=== PATIENT | female | born 1985 | race African-American/Black ===

== ENCOUNTER 2017-02-24 16:01 | Observation (INO) ==
[2017-02-24] MEDS ORDERED: SODIUM CHLORIDE 0.9% 500 ML IV STA (16:53)
[2017-02-24] MEDS ORDERED: ONDANSETRON 4 MG/2 ML VIAL IV STA (16:53)
[2017-02-24] MEDS ORDERED: MECLIZINE 25 MG TABLET PO STA (16:53)
--- NOTE | 2017-02-24 17:04 | Emergency Department Note ---
Lakshmi Becerra Brittany, am scribing for, and in the presence of, Dany Vargas MD 16:44. Sam Becerra Charles R, MD, personally performed the services described in this documentation, ascribed by Jennifer Martins in my presence, and it is both accurate and complete 703 . Arrival - Arrival Chief Complaint: Blood Pressure Stated Complaint: LOW BLOOD PRESSURE ED Nursing Triage Note: Low blood pressure at home - Pt is seeing Dr Dany Carmona - [facility] for CHF - pt denies CP or SOB Mode of Arrival: Ambulatory Limitations: No Limitations Source: Patient, Family - History of Present Illness HPI Narrative: This is a 31 y/o black female,who presents to the ED for further evaluation of Hypotension which started earlier this morning. Her mom states she has been taking her BP every day for the past week and has noticed it was low. Pt has a known Hx of CHF and sees Dr. Carmona in [place], [place]. She denies any CP or SOB. Pt really has no complaints other than dizziness when standing. She notes once she gets her balance the dizziness resolves on its own. Pt states she normally takes Lasix BID. Pt has no other complaints/pain in the ED at this time. Pt has a PMhx of CHF and NIDDM. Pt denies a surgical Hx. Pt denies a family medical Hx. Pt denies a social Hx. Onset (ago): hour(s) (Started earlier this morning) Consistency: constant Severity: mild Date of Last Menstrual Period: depo Allergies/Adverse Reactions: Allergies Allergy/AdvReac Type Severity Reaction Status Date / Time No Known Allergies Allergy Verified 02/24/17 16:40 Home Medications: Home Medications Medication Instructions Recorded Confirmed Type Allopurinol 300 mg PO DAILY PRN 02/24/17 02/24/17 History Carvedilol [Coreg] 25 mg PO BID 02/24/17 02/24/17 History Chlorzoxazone 500 mg PO Q6H PRN 02/24/17 02/24/17 History Cholecalciferol [Vitamin D3] 1,000 unit PO QAM 02/24/17 02/24/17 History Colchicine 0.6 mg PO BID PRN 02/24/17 02/24/17 History Digoxin Tab [Lanoxin Tab] 0.25 mg PO QAM 02/24/17 02/24/17 History Ferrous Sulfate 325 mg PO QAM 02/24/17 02/24/17 History Furosemide Tab [Lasix Tab] 40 mg PO BID DIURETIC 02/24/17 02/24/17 History Metformin HCl 500 mg PO BID 02/24/17 02/24/17 History Ramipril [Altace] 10 mg PO BID 02/24/17 02/24/17 History Spironolactone 25 mg PO QAM 02/24/17 02/24/17 History medroxyPROGESTERone INJ [Depo 150 mg IM Q90D 02/24/17 02/24/17 History Provera] Review of System - Review of System 12 point system: reviewed and no additional remarkable complaints except as stated - Review of System Constitutional: Present: weakness (Generalized weakness) Cardiovascular: Absent: chest pain, dyspnea on exertion Neurological: Present: vertigo (Orthostatic Hypotension) Medical,Surgical,& Family Hx - Medical History Cardio: History of: CHF Endocrine: History of: Diabetes Mellitus (NIDDM) - Social History Smoking Status: Never smoker Frequency of Alcohol Use: None Type of Drug Use: None Exam Vital Signs: Vital Signs Temperature 98.1 F 02/24/17 16:39 Pulse Rate 66 02/24/17 18:30 Respiratory Rate 21 02/24/17 18:30 Blood Pressure 98/32 02/24/17 18:30 O2 Sat by Pulse Oximetry 100 02/24/17 18:30 - General General appearance: alert, in no apparent distress - Head Head exam: Present: normal inspection - Eye Eye exam: Present: nystagmus (Slight nystagmus) - Neck Neck exam: Present: trachea midline. Absent: tenderness - Chest Chest inspection: Present: symmetric chest wall rise. Absent: tenderness - Respiratory Respiratory exam: Present: normal lung sounds bilaterally. Absent: respiratory distress - Cardiovascular Cardiovascular exam: Present: regular rate, normal rhythm, normal heart sounds. Absent: murmur, rubs, gallop, clicks, JVD - Abdominal Exam Abdominal exam: Present: soft, normal bowel sounds. Absent: tenderness - Rectal Exam Rectal exam: Present: deferred - Extremities Exam Extremities exam: Present: full ROM, normal capillary refill. Absent: tenderness - Back Exam Back exam: Present: full ROM. Absent: tenderness, muscle spasm, rashes - Neurological Exam Neurological exam: Present: alert, oriented X3, CN II-XII intact. Absent: motor sensory deficit - Psychiatric Psychiatric exam: Present: normal affect, normal mood. Absent: depressed, agitated, anxious, flat affect, manic - Skin Skin exam: Present: warm, dry, intact, normal color. Absent: rash, cyanosis, diaphoresis Course - Reevaluation(s) Reevaluation #1: Patient somewhat better but still having symptoms of dizziness and feeling she is going to fall out. Blood pressure still systolically less than 197. Time: 19:15 - Consultations Consultation #1: Hospitalist will admit patient Time: 19:16 Results - Labs CBC & BMP: 02/24/17 16:59 02/24/17 16:59 Lab Results: I have reviewed the patients labs Labs: Laboratory Tests 02/24/17 02/24/17 02/24/17 16:59 16:59 16:59 WBC 10.9 RBC 3.69 L Hgb 10.9 L Hct 32.4 L MCV 87.8 MCH 30 MCHC 33.6 RDW 14.2 Plt Count 357 MPV 10.3 Neut % (Auto) 63.4 Lymph % (Auto) 25.0 [place] % (Auto) 6.9 Eos % (Auto) 3.5 Baso % (Auto) 0.4 Neut # (Auto) 6.9 Lymph # (Auto) 2.7 [place] # (Auto) 0.8 Eos # (Auto) 0.4 Baso # (Auto) 0.0 Immature Gran % 0.8 Nucleated RBC % 0.0 Immature Gran # 0.09 Nucleated RBCs # 0.00 Immature Plt Fraction 0.0 Sodium 135 L Potassium 5.1 Chloride 104 Carbon Dioxide 23 Anion Gap 13.1 BUN 30 H Creatinine 1.70 H GFR Calculation 52 BUN/Creatinine Ratio 17.00 Glucose 73 L Calculated Osmolality 274.1 Calcium 9.3 Magnesium 1.3 L Total Bilirubin 0.40 AST 12 ALT 15 Alkaline Phosphatase 73 Total Creatine Kinase 172 CK-MB (CK-2) < 1.0 Troponin I < 0.015 B-Natriuretic Peptide < 2 L Total Protein 7.8 Albumin 3.7 Albumin/Globulin Ratio 0.9 L Urine Color Urine Appearance Urine pH Ur Specific [place] Urine Protein Urine Glucose (UA) Urine Ketones Urine Blood Urine Nitrate Urine Bilirubin Urine Urobilinogen Urine Leukocytes Urine RBC Urine WBC Ur Squamous Epith Cells Urine Bacteria Hyaline Casts Ur Culture Indicated? Urine Test Urine Opiates Screen Ur Barbiturates Screen Ur Phencyclidine Scrn U Amphetamine/Methamph U Benzodiazepines Scrn U Cocaine Metab Screen U Cannabinoids Screen 02/24/17 02/24/17 02/24/17 16:59 16:59 16:59 WBC RBC Hgb Hct MCV MCH MCHC RDW Plt Count MPV Neut % (Auto) Lymph % (Auto) [place] % (Auto) Eos % (Auto) Baso % (Auto) Neut # (Auto) Lymph # (Auto) [place] # (Auto) Eos # (Auto) Baso # (Auto) Immature Gran % Nucleated RBC % Immature Gran # Nucleated RBCs # Immature Plt Fraction Sodium Potassium Chloride Carbon Dioxide Anion Gap BUN Creatinine GFR Calculation BUN/Creatinine Ratio Glucose Calculated Osmolality Calcium Magnesium Total Bilirubin AST ALT Alkaline Phosphatase Total Creatine Kinase CK-MB (CK-2) Troponin I B-Natriuretic Peptide Total Protein Albumin Albumin/Globulin Ratio Urine Color Straw Urine Appearance Slightly hazy Urine pH 5.0 Ur Specific [place] 1.005 Urine Protein Negative Urine Glucose (UA) Negative Urine Ketones Negative Urine Blood Negative Urine Nitrate Negative Urine Bilirubin Negative Urine Urobilinogen < 2.0 H Urine Leukocytes Negative Urine RBC <1 Urine WBC 1 Ur Squamous Epith Cells Occasional Urine Bacteria Occasional Hyaline Casts 5 Ur Culture Indicated? Not indicated Urine Test Negative Urine Opiates Screen Negative Ur Barbiturates Screen Negative Ur Phencyclidine Scrn Negative U Amphetamine/Methamph Negative U Benzodiazepines Scrn Negative U Cocaine Metab Screen Negative U Cannabinoids Screen Negative - Diagnostic Findings Procedure: CT: report reviewed by me (Head CT: No acute intracranial abnormality is identified.) Disposition Clinical Impression: Orthostatic hypotension, Generalized weakness, Idiopathic dilated cardiac myopathy, Dizziness Case discussed with: patient, patient's family Disposition: Still a Patient Condition: Stable Time of Disposition: 19:17
--- NOTE | 2017-02-24 17:17 | CT Report ---
Referring physician: Dany Vargas Exam: CT brain without contrast Date: 02/24/2017 Comparison: None Reason: Dizziness Technique: Axial images of the head were obtained without the use of contrast. Total DLP was 1073.10 mGy*cm. Findings: No hydrocephalus or midline shift is present. There is no evidence of an acute infarction, recent intracranial hemorrhage or abnormal mass effect. The osseous structures appear intact. The mastoid air cells and visualized paranasal sinuses are clear. Impression: No acute intracranial abnormality is identified. The CT exam was performed using one or more of the following dose reduction techniques: Automated exposure control and adjustment of the mA and/or kV according to patient size. PROCEDURE INTERPRETED AT [facility] DEPARTMENT OF RADIOLOGY Final Report Signed by: Dr. Alexandria Egan
[2017-02-24] MEDS ORDERED: MECLIZINE 25 MG TABLET ONE (17:41)
[2017-02-24 17:47] LABS: Basophils % 0.4 % (0.0-0.8); Eosinophils # 0.4 10*3/uL (0.0-0.87); Eosinophils % 3.5 % (0.00-10.9); Hematocrit 32.4 VOL% (35.7-47.0); Hemoglobin 10.9 GM/DL (12.0-16.0); Immature Granulocytes % 0.8 %; Immature Granulocytes Absolute 0.09 #; Lymphocytes # 2.7 10*3/uL (1.4-4.0); Mean Corpuscular HGB Conc 33.6 GM/DL (32-36); Mean Corpuscular Hemoglobin 30 PG (27-34); Mean Corpuscular Volume 87.8 FL (87-102); Mean Platelet Volume 10.3 FL (9.6-12.0); Monocytes # 0.8 10*3/uL (0.11-0.8); Monocytes % 6.9 % (1.7-12.7); Neutrophils # 6.9 10*3/uL (1.4-7.4); Neutrophils % 63.4 % (38.7-73.9); Platelet Count 357 T/CUMM (130-400); Red Blood Count 3.69 MC/CUMM (3.8-5.5); Red Cell Distribution Width 14.2 % (9.3-17.3); White Blood Count 10.9 T/CUMM (4-12)
[2017-02-24 17:54] LABS: Apearance,Urine Slightly Hazy (Clear); Bacteria,Urine Occasional /HPF (Few); Bilirubin,Urine Negative (Negative); Blood, Urine Negative (Negative); Glucose,Urine (UA) Negative (Negative); Hyaline Casts,Urine 5 /LPF (0-3); Ketones,Urine Negative (Negative); Nitrite,Urine Negative (Negative); Protein,Urine Negative; RBC,Urine <1 /HPF (0-4); Squamous Epithelial Cell,Urine Occasional /HPF (0-10); Urine Color Straw (Yellow); Urine Specific Gravity 1.005 (1.001-1.035); Urine Urobilinogen < 2.0 EU/DL (0.2-1.0); WBC,Urine 1 /HPF (0-6)
[2017-02-24 18:08] LABS: Barbiturates Screen,Urine Negative (Negative); Benzodiazepines Screen,Urine Negative (Negative); Cannabinoid Screen,Urine Negative (Negative); Opiate Screen,Urine Negative (Negative); Phencyclidine Screen,Urine Negative (Negative)
--- NOTE | 2017-02-24 18:12 | XRay Report ---
2 view chest 02/24/2017 602 PM Indication: Shortness of breath Comparison: Not available Findings: Cardiomediastinal contours are normal. Lungs are clear bilaterally. . No acute osseous abnormalities. Visualized upper abdomen demonstrates no acute pathology. Impression: Normal chest PROCEDURE INTERPRETED AT [facility] DEPARTMENT OF RADIOLOGY Final Report Signed by: Marianna Reed MD
[2017-02-24 18:29] LABS: Alanine Aminotransferase 15 U/L (13-56); Albumin 3.7 G/DL (3.4-5.0); Alkaline Phosphatase 73 U/L (45-117); Aspartate Amino Transferase 12 U/L (0-37); Blood Urea Nitrogen 30 MG/DL (7-18); Calcium 9.3 MG/DL (8.5-10.1); Glucose 73 MG/DL (74-106); Magnesium 1.3 MG/DL (1.8-2.4); Osmolality,Calculated 274.1 MOS/KG (273-304); Potassium 5.1 MMOL/L (3.5-5.1); Sodium 135 MMOL/L (136-145); Total Protein 7.8 G/DL (6.4-8.3); Troponin I Only < 0.015 NG/ML (0.00-0.045)
[2017-02-24] MEDS ORDERED: MAGNESIUM SULF RIDER 2 GM in PREMIX 1 EACH IV STA (18:56)
[2017-02-24] MEDS ORDERED: MAGNESIUM SULF RIDER 50 ML IV ONE (19:01)
--- NOTE | 2017-02-24 19:39 | Hospitalist History & Physical ---
Assessment and Plan - Time spent with patient Time spent with patient: Greater than 30 minutes (1) Dizziness Status: Acute Assessment and plan: Patient has had some lightheadedness which is associated with her low blood pressure. I have reviewed some old records that she has from 2014 from [facility] at which time her systolic blood pressures were in the 90s. Because of her symptoms of dizziness at this time, we will place her in observation overnight and cautiously hydrate. Will hold her evening dose of Lasix and reinitiate her routine home medications in the a.m. Current Visit: Yes (2) Cardiomyopathy Status: Chronic Assessment and plan: Patient has a presumed nonischemic cardiomyopathy by history. 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 Current Visit: Yes (3) Hypertension Status: Chronic Assessment and plan: She is relatively hypotensive this time. Continue current medical management with plans as noted above. Current Visit: Yes Qualifiers: Hypertension type: essential hypertension Qualified Code(s): I10 - Essential (primary) hypertension (4) Obesity (BMI 30-39.9) Status: Chronic Assessment and plan: Have encouraged weight reduction and she is amenable and is actively trying. Current Visit: Yes (5) Diabetes mellitus Status: Chronic Assessment and plan: We will continue her routine metformin twice daily along with Accu-Cheks and sliding scale while here. Hemoglobin A1c has been ordered. Current Visit: Yes Qualifiers: Diabetes mellitus type: type 2 (6) Hypomagnesemia Status: Acute Assessment and plan: She is receiving magnesium replacement intravenously in the emergency department. We will follow-up level in the a.m. Current Visit: Yes History of Present Illness Chief complaint: Dizzy and low blood pressure History of present illness: Ms. Dai is a 31 year old -[place] female who presents today with a one-week history of dizziness which is typically associated with positional change. She apparently has a nonischemic cardiomyopathy and is been evaluated at [facility] for possible ICD placement. She was told that she needs to lose weight before they would proceed. She denies any chest pain, shortness of breath, abdominal pain, nausea, vomiting, diarrhea, constipation, melena, hematochezia, hematemesis, dysuria, hematuria, urinary frequency urgency incontinence, syncope , seizure. She has had no recent changes in medications except for the addition of metformin for her diabetes. Other than called in some abdominal discomfort she is happy with metformin as she has lost some weight since its initiation. She was evaluated in the emergency department and noted to have systolic blood pressure in the 80 and 90 range because of her symptoms associated with such was felt that she would benefit from continued observation and care. Her primary care provider is Dr. Laina Sullivan. Resuscitation status has been discussed and she is full code. Home Medications Medication Instructions Recorded Confirmed Type Allopurinol 300 mg PO DAILY PRN 02/24/17 02/24/17 History Carvedilol [Coreg] 25 mg PO BID 02/24/17 02/24/17 History Chlorzoxazone 500 mg PO Q6H PRN 02/24/17 02/24/17 History Cholecalciferol [Vitamin D3] 1,000 unit PO QAM 02/24/17 02/24/17 History Colchicine 0.6 mg PO BID PRN 02/24/17 02/24/17 History Digoxin Tab [Lanoxin Tab] 0.25 mg PO QAM 02/24/17 02/24/17 History Ferrous Sulfate 325 mg PO QAM 02/24/17 02/24/17 History Furosemide Tab [Lasix Tab] 40 mg PO BID DIURETIC 02/24/17 02/24/17 History Metformin HCl 500 mg PO BID 02/24/17 02/24/17 History Ramipril [Altace] 10 mg PO BID 02/24/17 02/24/17 History Spironolactone 25 mg PO QAM 02/24/17 02/24/17 History medroxyPROGESTERone INJ [Depo 150 mg IM Q90D 02/24/17 02/24/17 History Provera] Allergies Allergy/AdvReac Type Severity Reaction Status Date / Time No Known Allergies Allergy Verified 02/24/17 16:40 Medical,Surgical,& Family Hx - Medical History Cardio: History of: CHF Endocrine: History of: Diabetes Mellitus (NIDDM) - Surgical History Surgical History: noncontributory - Family History Family History: noncontributory Family History: Denies;: Family Heart Disease - Social History Smoking Status: Never smoker Frequency of Alcohol Use: None Type of Drug Use: None 12 point system: reviewed and no additional remarkable complaints except as stated Exam - Constitutional Vitals: Period Temp Pulse Resp BP Sys/Villarreal Pulse Ox Last 24 Hr 98.1 F-98.1 F 64-90 16-23 81-98/32-56 98-100 General appearance: no acute distress - Head Head exam: Present: normocephalic, atraumatic - Eye Eye exam: Present: EOMI. Absent: scleral icterus Pupils: Present: ANTONI - ENT ENT exam: Present: normal exam - Neck Neck exam: Present: normal inspection. Absent: lymphadenopathy, meningismus, tenderness, thyromegaly - Respiratory Respiratory exam: Present: clear to auscultation bilaterally. Absent: rales, rhonchi, wheezes - Cardiovascular Cardiovascular exam: Present: regular rate and rhythm. Absent: gallop, JVD, systolic murmur, tachycardia - GI/Abdominal GI/Abdominal exam: Present: normal bowel sounds, soft. Absent: ascites, mass, tenderness, rebound - Extremities Exam Extremities exam: Present: normal capillary refill. Absent: calf tenderness, edema - Back Exam Back exam: Present: normal inspection - Neurological Exam Neurological exam: Present: alert, oriented X3, CN II-XII intact, reflexes normal. Absent: motor sensory deficit - Psychiatric Psychiatric exam: Present: normal affect, normal mood. Absent: agitated, anxious - Skin Skin exam: Present: warm, dry. Absent: erythema, petechiae, rash Results - Labs CBC & BMP: 02/24/17 16:59 02/24/17 16:59 Lab Results: I have reviewed the past 24 hour labs - EKG EKG shows: sinus rhythm - Diagnostic Findings Procedure: Chest x-ray: report reviewed by me Quality Measures - VTE Deep Vein Thrombosis/Pulmonary Embolism Present on Admission: No
[2017-02-24] MEDS ORDERED: COLCHICINE 0.6 MG TABLET PO PRN (21:08)
[2017-02-24] MEDS ORDERED: SODIUM CHLORIDE 0.9% 1,000 ML IV SCH (21:08)
[2017-02-24] MEDS ORDERED: GLUCAGON 1 MG VIAL IM PRN (21:08)
[2017-02-24] MEDS ORDERED: DEXTROSE 50% 25 GM/50 ML SYRINGE IV PRN (21:08)
[2017-02-24] MEDS ORDERED: ONDANSETRON 4 MG/2 ML VIAL IV PRN (21:08)
[2017-02-24] MEDS ORDERED: ALLOPURINOL 300 MG TABLET PO PRN (21:08)
[2017-02-24] MEDS: ENOXAPARIN 40 MG/0.4 ML SYRINGE SUBCUT SCH (21:31)
[2017-02-24] MEDS: CARVEDILOL 25 MG TABLET PO SCH (21:31)
[2017-02-24] MEDS: metFORMIN 500 MG TABLET PO SCH (21:31)
[2017-02-24] MEDS ORDERED: INFLUENZA VIRUS VACCINE 0.5 ML SYRINGE IM ONE (23:27)
[2017-02-24] MEDS: RAMIPRIL 5 MG CAPSULE PO SCH (23:28)
[2017-02-24] MEDS: INSULIN LISPRO 100 UNIT/ML SUBCUT SCH (23:30)
--- NOTE | 2017-02-25 05:57 | Order Completion Report ---
See report scanned to EMR
[2017-02-25 06:35] LABS: Alanine Aminotransferase 15 U/L (13-56); Albumin 3.1 G/DL (3.4-5.0); Alkaline Phosphatase 64 U/L (45-117); Aspartate Amino Transferase 11 U/L (0-37); Bilirubin,Total < 0.39 MG/DL (0.2-1.0); Blood Urea Nitrogen 27 MG/DL (7-18); Calcium 8.2 MG/DL (8.5-10.1); Glucose 129 MG/DL (74-106); Osmolality,Calculated 283.5 MOS/KG (273-304); Potassium 4.3 MMOL/L (3.5-5.1); Sodium 139 MMOL/L (136-145); Total Protein 6.6 G/DL (6.4-8.3)
[2017-02-25] MEDS ORDERED: FUROSEMIDE 40 MG TABLET PO SCH (08:00)
[2017-02-25] MEDS: INSULIN LISPRO 100 UNIT/ML SUBCUT SCH ×4 (08:44→21:00)
[2017-02-25] MEDS ORDERED: CHOLECALCIFEROL 1,000 UNIT TABLET PO SCH (09:00)
[2017-02-25] MEDS ORDERED: SPIRONOLACTONE 25 MG TABLET PO SCH (09:00)
[2017-02-25] MEDS ORDERED: FERROUS FUMARATE 50 MG PO SCH (09:00)
[2017-02-25] MEDS: DIGOXIN 0.25 MG TABLET PO SCH (10:43)
[2017-02-25] MEDS: metFORMIN 500 MG TABLET PO SCH (10:43)
[2017-02-25] MEDS: CARVEDILOL 25 MG TABLET PO SCH (14:50)
[2017-02-25] MEDS: RAMIPRIL 5 MG CAPSULE PO SCH (14:51)
[2017-02-25] MEDS: METOPROLOL TARTRATE 25 MG TABLET PO SCH ×2 (15:04→20:34)
--- NOTE | 2017-02-25 15:04 | Hospitalist Progress Note ---
Assessment and Plan (1) Orthostatic hypotension Status: Acute Assessment and plan: Resolved but continue gentle normal saline hold blood pressure medicines except for low dose of metoprolol and digoxin. Current Visit: Yes (2) Cardiomyopathy Status: Chronic Assessment and plan: Echocardiogram ordered Current Visit: Yes (3) Obesity (BMI 30-39.9) Status: Chronic Assessment and plan: Needs to lose weight. Current Visit: Yes (4) Diabetes mellitus Status: Chronic Assessment and plan: Patient's hemoglobin A1c is 7.1, continue insulin sliding scale, hold metformin due to the elevated creatinine Current Visit: Yes Qualifiers: Diabetes mellitus type: type 2 (5) Hypomagnesemia Status: Acute Assessment and plan: Replacing with 2 g IV today Current Visit: Yes Hospitalist: Subjective Interval history: Patient's blood pressure remains low. She is not orthostatic. We will continue the normal saline as she is dehydrated. She sees a plan consultant in [place] who she is seen since the age of 17 and wants to continue seeing the same plan consultant. Patient has no insight into her disease and cannot tell me the details of her heart problems. She has not had an echocardiogram here. I have ordered one and the results are pending. We will hold her Lasix and hydrate her gently. She is tachycardic probable in response to the dehydration. Will use a low-dose of metoprolol only. Exam - Constitutional Vitals: Period Temp Pulse Resp BP Sys/Vill[place] Pulse Ox Last 24 Hr 97.8 F-98.6 F 64-91 16-23 81-110/32-66 96-100 Exam: Heart Rate-[tachy] Lungs-[CTAB] GI-[+bs soft, NT, obese] Ext-[no edema] Neuro [Motor 5/5], [alert and oriented times 3] psych [normal mood and affect] General [no acute distress] Results - Labs CBC & BMP: 02/24/17 16:59 02/25/17 05:47 Lab Results: I have reviewed the past 24 hour labs - Diagnostic Findings Procedure: Chest x-ray: report reviewed by me (Nothing acute), CT: report reviewed by me (Nothing acute) Quality Measures - VTE Deep Vein Thrombosis/Pulmonary Embolism Present on Admission: No
[2017-02-25] MEDS: SODIUM CHLORIDE 0.9% 1,000 ML IV SCH (15:05)
[2017-02-25] MEDS ORDERED: MAGNESIUM SULF RIDER 2 GM in PREMIX 1 EACH IV ONE (15:05)
[2017-02-25] MEDS: ENOXAPARIN 40 MG/0.4 ML SYRINGE SUBCUT SCH (20:34)
[2017-02-26 05:52] LABS: Calcium 9.1 MG/DL (8.5-10.1); Magnesium 2.1 MG/DL (1.8-2.4); Osmolality,Calculated 281.4 MOS/KG (273-304); Potassium 4.5 MMOL/L (3.5-5.1)
[2017-02-26] MEDS: SODIUM CHLORIDE 0.9% 1,000 ML IV SCH (06:33)
[2017-02-26] MEDS: INSULIN LISPRO 100 UNIT/ML SUBCUT SCH (08:20)
[2017-02-26] MEDS: METOPROLOL TARTRATE 25 MG TABLET PO SCH (09:07)
[2017-02-26] MEDS: DIGOXIN 0.25 MG TABLET PO SCH (09:08)
--- NOTE | 2017-02-26 10:07 | Order Completion Report ---
See report scanned to EMR
--- NOTE | 2017-02-26 10:40 | Discharge Summary ---
Hospital Course - Hospital Course Hospital Course: Ms. Dai is a 31 year old -Citizen Of [place] female who presents today with a one-week history of dizziness which is typically associated with positional change. She apparently has a history of dilated cardiomyopathy and has been evaluated at [facility] for possible ICD placement. Echo showed 40%. She was extremely dehydrated. We held her spironolactone and lasix and gentle rehydrated her. She is no longer orthostatic and hypotensive and will be restarted on a reduced dose of lasix, and altce. I have switched her from coreg to metoprolol for better control of her Heart rate. Patient has chronic systolic congestive heart failure. Follow-up with primary certified mortician at [facility] and primary care physician in 1-2 weeks. - Time spent with patient Time with patient DS: Less than 30 minutes (25 min) Diagnosis - Discharge Diagnosis (1) Orthostatic hypotension Status: Acute (2) Cardiomyopathy Status: Chronic (3) Obesity (BMI 30-39.9) Status: Chronic (4) Diabetes mellitus Status: Chronic (5) Hypomagnesemia Status: Acute Discharge Plan - Discharge Data Disposition: Disch To Home/Self Care Condition at Discharge: Stable Discharge Diet: diabetic diet Activity: resume usual activities as tolerated Hygiene: no restrictions Weight Bearing at Discharge: full weight bearing - Discharge Medications New Metoprolol Tartrate Tab [Lopressor Tab] 25 mg PO BID #60 tablet Ramipril [Altace] 2.5 mg PO DAILY #30 capsule Continue Allopurinol 300 mg PO DAILY PRN PRN Reason: Gout medroxyPROGESTERone INJ [Depo Provera] 150 mg IM Q90D Digoxin Tab [Lanoxin Tab] 0.25 mg PO QAM Cholecalciferol [Vitamin D3] 1,000 unit PO QAM Metformin HCl 500 mg PO BID Chlorzoxazone 500 mg PO Q6H PRN PRN Reason: MUSCLE SPASM/PAIN Changed Colchicine 0.6 mg PO DAILY #0 Furosemide Tab [Lasix Tab] 20 mg PO BID DIURETIC #0 Discontinued Spironolactone 25 mg PO QAM Carvedilol [Coreg] 25 mg PO BID Ramipril [Altace] 10 mg PO BID - Follow Up or Referral Follow Up: dr mars [Other] - 2 Weeks [employer] [Other] - 2 Weeks - Forms/Instructions Exam - Constitutional Vitals: Period Temp Pulse Resp BP Sys/Vill[place] Pulse Ox Last 24 Hr 96.8 F-98.7 F 72-92 18-20 101-121/54-67 97-99 General appearance: normal weight, no acute distress - Respiratory Respiratory exam: Present: clear to auscultation bilaterally - Cardiovascular Cardiovascular exam: Present: regular rate and rhythm. Absent: systolic murmur - GI/Abdominal GI/Abdominal exam: Present: normal bowel sounds, soft. Absent: tenderness - Extremities Exam Extremities exam: Present: normal inspection, normal capillary refill - Neurological Exam Neurological exam: Present: alert, oriented X3 Discharge Results Labs on day of discharge: Labs from last 24 hours 02/26/17 02/26/17 02/25/17 07:42 04:03 21:21 Sodium 140 Potassium 4.5 Chloride 108 H Carbon Dioxide 25 Anion Gap 11.5 BUN 19 H Creatinine 1.20 H GFR Calculation 80 BUN/Creatinine Ratio 15.00 Glucose 122 H POC Glucose 142 H 128 H Calculated Osmolality 281.4 Calcium 9.1 Magnesium 2.1 02/25/17 02/25/17 15:55 11:04 Sodium Potassium Chloride Carbon Dioxide Anion Gap BUN Creatinine GFR Calculation BUN/Creatinine Ratio Glucose POC Glucose 133 H 154 H Calculated Osmolality Calcium Magnesium DS: Provider Date of admission: 02/24/17 19:32 Primary care physician: Laina Jack Attending physician on admission: Harshil Brito MD Discharging clinician: Bessie Love MD
[2017-02-26 12:32] VITALS: BP 106/52
== END 2017-02-26 12:27 | disposition home or self-care (01) ==
LOC: N.ED 16:01 → N.EDINP 16:01 → SUATTDRO 19:32 → N.4E 20:01
PROVIDERS: ADMIT Internal Medicine; ATTEND Internal Medicine

== ENCOUNTER 2021-10-25 10:25 | Inpatient (IN) ==
[2021-10-25] MEDS ORDERED: SODIUM CHLORIDE 0.9% 1,000 ML IV STA (11:40)
[2021-10-25] MEDS ORDERED: PROMETHAZINE 25 MG/1 ML VIAL IM STA (12:03)
[2021-10-25] MEDS ORDERED: KETOROLAC 60 MG/2 ML VIAL IM STA (12:03)
[2021-10-25 12:04] LABS: Basophils # 0.2 10*3/uL (0.0-0.2); Basophils % 1.7 % (0.0-0.8); Eosinophils % 0.4 % (0.00-10.9); Hematocrit 39.9 VOL% (35.7-47.0); Hemoglobin 13.3 GM/DL (12.0-16.0); Immature Granulocytes % 1.2 %; Immature Granulocytes Absolute 0.11 #; Lymphocytes # 5.9 10*3/uL (1.4-4.0); Lymphocytes % 62.6 % (21.3-54.2); Mean Corpuscular HGB Conc 33.3 GM/DL (32-36); Mean Corpuscular Volume 88.3 FL (87-102); Mean Platelet Volume 10.9 FL (9.6-12.0); Monocytes # 0.4 10*3/uL (0.11-0.8); Monocytes % 4.7 % (1.7-12.7); Neutrophils % 29.4 % (38.7-73.9); Platelet Count 253 T/CUMM (130-400); Red Blood Count 4.52 MC/CUMM (3.8-5.5); Red Cell Distribution Width 14.6 % (9.3-17.3); White Blood Count 9.5 T/CUMM (4-12)
[2021-10-25 12:25] LABS: Eosinophils 1 % (0-10); Lymphocytes 55 % (20-55); Platelet Estimate Adequate; Total Cells Counted 100
[2021-10-25 12:26] LABS: Atypical Lymphocytes Few
[2021-10-25 12:32] LABS: Albumin 3.4 G/DL (3.4-5.0); Bilirubin,Total 0.6 MG/DL (0.20-1.00); Potassium 3.9 MMOL/L (3.5-5.1)
[2021-10-25 12:42] LABS: Protein,Urine >=300 mg/dL (Negative); Urine Appearance Slightly Cloudy (Clear); Urine Color Yellow (Yellow); Urine pH 5.5 (4.5-8.0)
[2021-10-25 12:43] LABS: Bilirubin,Urine Small mg/dL (Negative); Blood, Urine Negative (Negative); Glucose,Urine (UA) Negative (Negative); Ketones,Urine Trace mg/dL (Negative); Nitrite,Urine Negative (Negative); Urine Urobilinogen 0.2 eU/dL (<2.0)
[2021-10-25 12:48] LABS: Hyaline Casts,Urine 29 /LPF (0-3); Mucus,Urine Occasional /LPF (Occasional); RBC,Urine 10 /HPF (0-4); Squamous Epithelial Cell,Urine Moderate /HPF (0-10)
[2021-10-25 12:51] LABS: Barbiturates Screen,Urine Negative (Negative); Benzodiazepines Screen,Urine Negative (Negative); Cannabinoid Screen,Urine Negative (Negative); Opiate Screen,Urine Negative (Negative); Phencyclidine Screen,Urine Negative (Negative)
[2021-10-25] MEDS ORDERED: DEXTROSE 50% 25 GM/50 ML VIAL IV PRN (13:37)
[2021-10-25] MEDS ORDERED: DOCUSATE SODIUM 100 MG CAPSULE PO PRN (13:37)
[2021-10-25] MEDS ORDERED: GLUCAGON 1 MG VIAL IM PRN (13:37)
[2021-10-25] MEDS ORDERED: DEXTROSE 10% 250 ML BAG IV PRN (14:10)
[2021-10-25] MEDS ORDERED: DIGOXIN 0.125 MG TABLET PO STA (14:54)
[2021-10-25] MEDS ORDERED: MAGNESIUM SULF RIDER 4 GM/100 ML PREMIX IV ONE (15:00)
[2021-10-25] MEDS: cefTRIAXone 1,000 MG in SODIUM CHLORIDE 0.9% 100 ML IV SCH (16:40)
[2021-10-25] MEDS: ENOXAPARIN 40 MG/0.4 ML SYRINGE SUBCUT SCH (16:45)
[2021-10-25] MEDS: INSULIN LISPRO 100 UNIT/ML SUBCUT SCH ×2 (17:05→22:27)
[2021-10-25] MEDS: carvediloL 12.5 MG TABLET PO SCH (22:24)
[2021-10-25] MEDS: DOXYCYCLINE HYCLATE 100 MG CAPSULE PO SCH (22:24)
[2021-10-25] MEDS: SACUBITRIL/VALSARTAN 49-51 MG TABLET PO SCH (22:24)
[2021-10-25] MEDS: FUROSEMIDE 20 MG TABLET PO SCH (22:25)
[2021-10-25] MEDS: INSULIN NPH/REGULAR 70/30 100 UNIT/ML SUBCUT SCH (22:27)
[2021-10-26] MEDS: PANTOPRAZOLE 40 MG TABLET PO SCH (05:34)
[2021-10-26] MEDS: ACETAMINOPHEN 325 MG TABLET PO PRN ×2 (05:35→21:20)
[2021-10-26 05:53] LABS: Calcium 7.9 MG/DL (8.5-10.1); Osmolality,Calculated 279.7 MOS/KG (273-304); Potassium 3.7 MMOL/L (3.5-5.1); Risk Ratio 5.56; VLDL Cholesterol 80.8 MG/DL
[2021-10-26 07:50] LABS: Basophils # 0.2 10*3/uL (0.0-0.2); Basophils % 1.8 % (0.0-0.8); Eosinophils % 0.4 % (0.00-10.9); Hematocrit 38.1 VOL% (35.7-47.0); Hemoglobin 12.5 GM/DL (12.0-16.0); Immature Granulocytes % 0.6 %; Immature Granulocytes Absolute 0.05 #; Lymphocytes # 6.1 10*3/uL (1.4-4.0); Lymphocytes % 67.8 % (21.3-54.2); Mean Corpuscular HGB Conc 32.8 GM/DL (32-36); Mean Corpuscular Volume 86.8 FL (87-102); Mean Platelet Volume 11.1 FL (9.6-12.0); Monocytes # 0.3 10*3/uL (0.11-0.8); Monocytes % 3.7 % (1.7-12.7); Neutrophils % 25.7 % (38.7-73.9); Platelet Count 241 T/CUMM (130-400); Red Blood Count 4.39 MC/CUMM (3.8-5.5); Red Cell Distribution Width 14.7 % (9.3-17.3)
[2021-10-26 08:18] LABS: Atypical Lymphocytes Few; Band Neutrophils 1 % (0-10); Lymphocytes 61 % (20-55); Platelet Estimate Adequate; Total Cells Counted 100
[2021-10-26] MEDS: INSULIN LISPRO 100 UNIT/ML SUBCUT SCH ×4 (08:24→20:34)
[2021-10-26] MEDS: SACUBITRIL/VALSARTAN 49-51 MG TABLET PO SCH ×2 (09:09→20:33)
[2021-10-26] MEDS: DOXYCYCLINE HYCLATE 100 MG CAPSULE PO SCH ×2 (09:09→20:32)
[2021-10-26] MEDS: OMEGA 3 ACID ETHYL ESTERS 1 GM CAPSULE PO SCH ×2 (09:09→20:33)
[2021-10-26] MEDS: carvediloL 12.5 MG TABLET PO SCH ×2 (09:10→20:33)
[2021-10-26] MEDS: FERROUS SULFATE 325 MG TABLET PO SCH (09:10)
[2021-10-26] MEDS: DIGOXIN 0.125 MG TABLET PO SCH (09:10)
[2021-10-26] MEDS: FUROSEMIDE 20 MG TABLET PO SCH ×2 (09:10→20:33)
[2021-10-26] MEDS: cefTRIAXone 1,000 MG in SODIUM CHLORIDE 0.9% 100 ML IV SCH (09:21)
[2021-10-26] MEDS: DAPAGLIFLOZIN 10 MG TABLET PO SCH (15:30)
[2021-10-26] MEDS: ENOXAPARIN 40 MG/0.4 ML SYRINGE SUBCUT SCH (15:30)
[2021-10-26] MEDS: INSULIN NPH/REGULAR 70/30 100 UNIT/ML SUBCUT SCH (20:34)
[2021-10-27 04:37] LABS: Basophils # 0.1 10*3/uL (0.0-0.2); Basophils % 0.5 % (0.0-0.8); Eosinophils # 0.1 10*3/uL (0.0-0.87); Eosinophils % 0.6 % (0.00-10.9); Hematocrit 37.5 VOL% (35.7-47.0); Hemoglobin 12.1 GM/DL (12.0-16.0); Immature Granulocytes % 0.6 %; Immature Granulocytes Absolute 0.06 #; Lymphocytes # 7.8 10*3/uL (1.4-4.0); Mean Corpuscular HGB Conc 32.3 GM/DL (32-36); Mean Corpuscular Volume 88.2 FL (87-102); Mean Platelet Volume 11.3 FL (9.6-12.0); Monocytes # 1.2 10*3/uL (0.11-0.8); Monocytes % 11.2 % (1.7-12.7); Neutrophils % 14.1 % (38.7-73.9); Platelet Count 240 T/CUMM (130-400); Red Blood Count 4.25 MC/CUMM (3.8-5.5); Red Cell Distribution Width 14.9 % (9.3-17.3); White Blood Count 10.7 T/CUMM (4-12)
[2021-10-27 04:54] LABS: Calcium 8.3 MG/DL (8.5-10.1)
[2021-10-27 04:59] LABS: Eosinophils 2 % (0-10); Lymphocytes 69 % (20-55); Platelet Estimate Adequate; Total Cells Counted 100
[2021-10-27 05:00] LABS: Atypical Lymphocytes Few
[2021-10-27] MEDS: PANTOPRAZOLE 40 MG TABLET PO SCH (05:51)
[2021-10-27] MEDS: INSULIN LISPRO 100 UNIT/ML SUBCUT SCH ×2 (07:58→11:31)
[2021-10-27] MEDS ORDERED: ASPIRIN EC 81 MG TABLET PO SCH (09:00)
[2021-10-27] MEDS: ACETAMINOPHEN 325 MG TABLET PO PRN (09:21)
[2021-10-27] MEDS: SACUBITRIL/VALSARTAN 49-51 MG TABLET PO SCH (09:22)
[2021-10-27] MEDS: DAPAGLIFLOZIN 10 MG TABLET PO SCH (09:22)
[2021-10-27] MEDS: carvediloL 12.5 MG TABLET PO SCH (09:22)
[2021-10-27] MEDS: DOXYCYCLINE HYCLATE 100 MG CAPSULE PO SCH (09:22)
[2021-10-27] MEDS: OMEGA 3 ACID ETHYL ESTERS 1 GM CAPSULE PO SCH (09:22)
[2021-10-27] MEDS: DIGOXIN 0.125 MG TABLET PO SCH (09:22)
[2021-10-27] MEDS: FUROSEMIDE 20 MG TABLET PO SCH (09:23)
[2021-10-27] MEDS: FERROUS SULFATE 325 MG TABLET PO SCH (09:23)
[2021-10-27] MEDS: cefTRIAXone 1,000 MG in SODIUM CHLORIDE 0.9% 100 ML IV SCH (09:26)
[2021-10-27] MEDS ORDERED: SPIRONOLACTONE 25 MG TABLET PO SCH (11:30)
[2021-10-27] MEDS ORDERED: MAGNESIUM SULF RIDER 2 GM/50 ML PREMIX IV ONE (11:45)
[2021-10-27 11:54] VITALS: BP 91/60
[2021-10-27] MEDS ORDERED: MAGNESIUM OXIDE 400 MG TABLET PO SCH (21:00)
[2021-10-28] MEDS ORDERED: COLCHICINE 0.6 MG CAPSULE PO SCH (09:00)
[2021-10-28] MEDS ORDERED: CETIRIZINE 10 MG TABLET PO SCH (09:00)
[2021-10-28] MEDS ORDERED: allopurinoL 300 MG TABLET PO SCH (09:00)
[2021-10-28] MEDS ORDERED: CHOLECALCIFEROL 1,000 UNIT TABLET PO SCH (09:00)
== END 2021-10-27 15:20 | disposition home or self-care (01) | DRG 194 ==
LOC: N.ED 10:25 → N.EDINP 10:25 → SUATTDRO 13:28 → N.EDINP 15:25 → N.TELEN 16:17 → SUATTDRO 10-26 09:41
PROVIDERS: ADMIT Internal Medicine; ATTEND Internal Medicine